=== PATIENT | female | born 1950 | race African-American/Black ===

== ENCOUNTER 2025-01-30 14:57 | Inpatient (IN) | payer MEDICARE ==
[~2025-01-30] VITALS: Ht 170.2 cm; Wt 46.3 kg
[~2025-01-30 14:57] MED LIST: AMLO5TAB88 GT; CLON0.1T PO; DOCU-422 PO; LEVE1000 GT; MELA3TAB40 PO; METO25TA6 GT; PANT40TA51 GT; TOPUD GT
[2025-01-30 15:00] VITALS: BP 118/39; PULSE 68; RESP 16; TEMP 36.6; O2SAT 98
[2025-01-30] MEDS ORDERED: HYDRALAZINE 20MG/ML VIAL IV PRN (16:45)
[2025-01-30] MEDS ORDERED: CLONIDINE 0.1MG TABLET PO PRN (16:45)
[2025-01-30] MEDS ORDERED: IPRATROPIUM/ALBUTEROL 0.5-3(2.5)MG/3ML NEB HHN PRN (16:45)
[2025-01-30] MEDS ORDERED: DOCUSATE SODIUM 100MG CAPSULE PO PRN (16:45)
[2025-01-30] MEDS ORDERED: HYDRALAZINE 10 MG in SODIUM CHLORIDE 0.9% 49.5 ML IV PRN (17:30)
[2025-01-30] MEDS: METOCLOPRAMIDE HCL 10MG/2ML VIAL IV SCH (18:00)
[2025-01-30 20:00] VITALS: BP 141/87; PULSE 80; RESP 19; TEMP 36.5; TEMP 36.5292; O2SAT 99
[2025-01-30] MEDS: CEFTRIAXONE 2GM/50ML 50 ML IV SCH (20:37)
[2025-01-30] MEDS: DEXT 5%/0.9% NACL KCL 20MEQ/L 1,000 ML IV SCH (20:44)
[2025-01-30] MEDS: AMLODIPINE 5MG TABLET GT SCH (21:51)
[2025-01-30] MEDS: METOPROLOL TARTRATE 25MG TABLET GT SCH (21:52)
[2025-01-30] MEDS: LEVETIRACETAM 1000MG PREMIX 100 ML IV SCH (22:00)
[2025-01-31 06:49] LABS: BASOPHILS % 0.5 % (0.0-2.0); EOSINOPHILS % 0.8 % (0.0-5.0); HEMATOCRIT. 27.9 % (36.0-48.0); HEMOGLOBIN. 9.2 g/dL (12.0-16.0); LYMPHOCYTES % 14.7 % (20.0-50.0); MEAN PLATELET VOLUME 8.3 fl (7.4-10.4); MONOCYTES % 9.1 % (2.0-8.0); NEUTROPHILS % 74.9 % (40.0-76.0); PLATELET 425 x1000/uL (130-400); RED BLOOD CELL COUNT 3.58 mill/uL (4.2-5.4); RED CELL DISTRIBUTION WIDTH 16.2 % (11.6-14.6)
[2025-01-31 07:26] LABS: PROTEIN TOTAL 5.0 g/dL (6.0-8.3)
[2025-01-31 07:27] LABS: CREATININE 0.5 mg/dL (0.6-1.0); UREA NITROGEN BLOOD 8 mg/dL (9-23)
[2025-01-31 07:28] LABS: ASPARTATE AMINOTRANSFERASE 19 IU/L (<34)
[2025-01-31 07:29] LABS: BILIRUBIN TOTAL < 0.2 mg/dL (0.1-1.0)
[2025-01-31 07:32] LABS: VITAMIN B12 SERUM 686 pg/mL (211-911)
[2025-01-31 07:33] LABS: FOLIC ACID (FOLATE) SERUM 7.34 ng/mL (>5.38)
[2025-01-31 08:00] VITALS: BP 157/73; PULSE 92; RESP 17; TEMP 37.1; O2SAT 98
[2025-01-31] MEDS: MAGNESIUM OXIDE 400MG TABLET GT SCH (09:50)
[2025-01-31] MEDS: PANTOPRAZOLE SODIUM 40 MG/VIAL IV SCH (09:51)
[2025-01-31 20:00] VITALS: BP 122/55; PULSE 112; RESP 18; TEMP 37.3; O2SAT 96
[2025-01-31] MEDS: METOPROLOL TARTRATE 25MG TABLET GT SCH (20:53)
[2025-02-01 08:00] VITALS: BP 127/51; PULSE 109; RESP 17; TEMP 36.8; O2SAT 96
[2025-02-01] MEDS: ACETAMINOPHEN 325MG TABLET GT PRN (13:51)
[2025-02-01] MEDS: FERROUS SULFATE 325MG TABLET PO SCH (17:24)
[2025-02-01 20:00] VITALS: BP 143/59; PULSE 79; RESP 18; TEMP 37.2; O2SAT 98
[2025-02-02 08:00] VITALS: BP 150/60; PULSE 68; RESP 18; TEMP 35.9; O2SAT 100
[2025-02-02] MEDS: ASCORBIC ACID 500 MG TABLET PO SCH (10:02)
[2025-02-02 20:32] LABS: BASOPHILS % 0.4 % (0.0-2.0); EOSINOPHILS % 1.0 % (0.0-5.0); HEMATOCRIT. 28.4 % (36.0-48.0); HEMOGLOBIN. 9.3 g/dL (12.0-16.0); LYMPHOCYTES % 14.6 % (20.0-50.0); MEAN PLATELET VOLUME 8.3 fl (7.4-10.4); MONOCYTES % 9.5 % (2.0-8.0); NEUTROPHILS % 74.5 % (40.0-76.0); PLATELET 378 x1000/uL (130-400); RED BLOOD CELL COUNT 3.56 mill/uL (4.2-5.4); RED CELL DISTRIBUTION WIDTH 16.3 % (11.6-14.6)
[2025-02-02 20:49] LABS: CREATININE 0.6 mg/dL (0.6-1.0); UREA NITROGEN BLOOD 11 mg/dL (9-23)
[2025-02-02 20:51] LABS: PHOSPHORUS 2.7 mg/dL (2.5-4.9)
[2025-02-02 21:00] VITALS: BP 142/76; PULSE 74; RESP 18; TEMP 36.2; O2SAT 97
[2025-02-03 06:51] LABS: BASOPHILS % 0.4 % (0.0-2.0); EOSINOPHILS % 1.3 % (0.0-5.0); HEMATOCRIT. 32.7 % (36.0-48.0); HEMOGLOBIN. 10.7 g/dL (12.0-16.0); LYMPHOCYTES % 17.4 % (20.0-50.0); MEAN PLATELET VOLUME 8.8 fl (7.4-10.4); MONOCYTES % 11.1 % (2.0-8.0); NEUTROPHILS % 69.8 % (40.0-76.0); PLATELET 378 x1000/uL (130-400); RED BLOOD CELL COUNT 4.14 mill/uL (4.2-5.4); RED CELL DISTRIBUTION WIDTH 16.3 % (11.6-14.6)
[2025-02-03 07:04] LABS: CREATININE 0.5 mg/dL (0.6-1.0); UREA NITROGEN BLOOD 9 mg/dL (9-23)
[2025-02-03 08:00] VITALS: BP 109/59; PULSE 69; RESP 17; TEMP 36.5; O2SAT 98
[2025-02-03 20:00] VITALS: BP 134/59; PULSE 90; RESP 18; TEMP 36.6; O2SAT 98
[2025-02-04 08:00] VITALS: BP 152/61; PULSE 71; RESP 18; TEMP 36; O2SAT 99
[2025-02-04 20:00] VITALS: BP 129/60; PULSE 91; RESP 18; TEMP 36.7; O2SAT 96
[2025-02-05 07:37] LABS: CREATININE 0.5 mg/dL (0.6-1.0); UREA NITROGEN BLOOD 11 mg/dL (9-23)
[2025-02-05 07:39] LABS: HEMATOCRIT. 29.4 % (36.0-48.0); HEMOGLOBIN. 9.7 g/dL (12.0-16.0); MEAN PLATELET VOLUME 8.3 fl (7.4-10.4); PLATELET 407 x1000/uL (130-400); RED BLOOD CELL COUNT 3.76 mill/uL (4.2-5.4); RED CELL DISTRIBUTION WIDTH 16.3 % (11.6-14.6)
[2025-02-05 08:00] VITALS: BP 137/70; PULSE 95; RESP 18; TEMP 36.4; O2SAT 97
[2025-02-05] MEDS ORDERED: LIDOCAINE HCL/EPINEPHRINE 1%-EPI 1:100,000 20ML VIAL INFIL NR (08:00)
[2025-02-05] MEDS: MULTIVITAMINS,THER W-MINERALS TABLET PO SCH (09:57)
[2025-02-05 15:35] LABS: EOSINOPHILS % MANUAL 1.0 % (0.0-5.0); LYMPHOCYTES % MANUAL 23.0 % (20.0-60.0); MONOCYTES % MANUAL 14.0 % (2.0-8.0); NEUTROPHILS % MANUAL 62.0 % (45.0-75.0); PLATELET ESTIMATE NORMAL
[2025-02-05 20:00] VITALS: BP 131/72; PULSE 94; RESP 18; TEMP 36.6; O2SAT 97
[2025-02-05] MEDS: SODIUM HYPOCHLORITE 0.125% 473ML SOLUTION TOP SCH (23:13)
[2025-02-06 08:00] VITALS: BP 170/76; PULSE 86; RESP 16; TEMP 36.4; O2SAT 99
[2025-02-06 12:09] LABS: CLARITY URINE CLEAR (CLEAR); COLOR URINE YELLOW (YELLOW); GLUCOSE URINE NEGATIVE (NEGATIVE); KETONES URINE NEGATIVE (NEGATIVE); LEUKOCYTE ESTERASE URINE NEGATIVE (NEGATIVE); NITRITE URINE NEGATIVE (NEGATIVE); OCCULT BLOOD URINE NEGATIVE (NEGATIVE); PH URINE 7.5 (4.5-8.0); PROTEIN URINE NEGATIVE (NEGATIVE); SPECIFIC GRAVITY URINE 1.009 (1.005-1.030); UROBILINOGEN URINE 0.2 E.U./dL (0.2-1.0)
[2025-02-06 20:00] VITALS: BP 117/51; PULSE 97; RESP 19; TEMP 37.4; O2SAT 99
[2025-02-07 08:00] VITALS: BP 151/76; PULSE 83; RESP 19; TEMP 36.4; O2SAT 96
[2025-02-07] MEDS: LACTULOSE 20G/30ML UDC PO NR (10:00)
[2025-02-07 20:00] VITALS: BP 132/57; PULSE 84; RESP 18; TEMP 36.4; O2SAT 95
[2025-02-08 08:00] VITALS: BP 140/60; PULSE 91; RESP 20; TEMP 36.7; O2SAT 100
[2025-02-08 08:51] LABS: BASOPHILS % 0.6 % (0.0-2.0); EOSINOPHILS % 2.3 % (0.0-5.0); HEMATOCRIT. 25.1 % (36.0-48.0); HEMOGLOBIN. 8.4 g/dL (12.0-16.0); LYMPHOCYTES % 29.5 % (20.0-50.0); MEAN PLATELET VOLUME 8.4 fl (7.4-10.4); MONOCYTES % 11.6 % (2.0-8.0); NEUTROPHILS % 56.0 % (40.0-76.0); PLATELET 407 x1000/uL (130-400); RED BLOOD CELL COUNT 3.23 mill/uL (4.2-5.4); RED CELL DISTRIBUTION WIDTH 16.1 % (11.6-14.6)
[2025-02-08 09:02] LABS: CREATININE 0.5 mg/dL (0.6-1.0)
[2025-02-08 09:03] LABS: UREA NITROGEN BLOOD 17 mg/dL (9-23)
[2025-02-08 09:05] LABS: PHOSPHORUS 3.5 mg/dL (2.5-4.9)
[2025-02-08] MEDS: DICLOFENAC SODIUM 1% GEL 50GM TOP SCH (17:00)
[2025-02-08] MEDS: AMPICILLIN SOD/SULBACTAM NA 3 G in SODIUM CHLORIDE 0.9% 100 ML IV SCH (19:01)
[2025-02-08 20:00] VITALS: BP 123/48; PULSE 95; RESP 18; TEMP 36.8; O2SAT 97
[2025-02-09 08:00] VITALS: BP 133/56; PULSE 79; RESP 17; TEMP 36.5; O2SAT 99
[2025-02-09] MEDS: LIDOCAINE 5% PATCH TOP SCH (08:51)
[2025-02-09 20:00] VITALS: BP 120/59; PULSE 89; RESP 14; TEMP 36.8; O2SAT 100
[2025-02-09] MEDS: MELATONIN 3MG TABLET PO PRN (22:17)
[2025-02-10 08:00] VITALS: BP 126/50; PULSE 67; RESP 18; TEMP 36.6; O2SAT 100
[2025-02-10] MEDS: ACETAMINOPHEN 650MG/20.3ML UDC GT SCH (17:32)
[2025-02-10 20:00] VITALS: BP 120/61; PULSE 84; RESP 18; TEMP 37.4; O2SAT 96
[2025-02-11 08:00] VITALS: BP 127/53; PULSE 73; RESP 18; TEMP 36; O2SAT 98
[2025-02-11 08:32] LABS: CREATININE 0.6 mg/dL (0.6-1.0); UREA NITROGEN BLOOD 14 mg/dL (9-23)
[2025-02-11 08:48] LABS: BASOPHILS % 2.0 % (0.0-2.0); EOSINOPHILS % 3.8 % (0.0-5.0); HEMATOCRIT. 30.9 % (36.0-48.0); HEMOGLOBIN. 10.1 g/dL (12.0-16.0); LYMPHOCYTES % 26.3 % (20.0-50.0); MEAN PLATELET VOLUME 8.0 fl (7.4-10.4); MONOCYTES % 9.9 % (2.0-8.0); NEUTROPHILS % 58.0 % (40.0-76.0); PLATELET 577 x1000/uL (130-400); RED BLOOD CELL COUNT 3.95 mill/uL (4.2-5.4); RED CELL DISTRIBUTION WIDTH 16.4 % (11.6-14.6)
[2025-02-11 20:00] VITALS: BP 134/61; PULSE 64; RESP 19; TEMP 36.5; O2SAT 100
[2025-02-12] VITALS: BP 133/61; PULSE 68; RESP 18; TEMP 36.3; O2SAT 100
[2025-02-12 08:00] VITALS: BP 125/60; PULSE 93; RESP 18; TEMP 37; O2SAT 97
[2025-02-12] MEDS: BISACODYL 10MG SUPP PR NR (15:45)
[2025-02-12 20:00] VITALS: BP 133/55; PULSE 89; RESP 18; TEMP 36.9; O2SAT 93
[2025-02-12] MEDS: LEVETIRACETAM 500MG/5ML CUP PO SCH (21:17)
[2025-02-13] MEDS ORDERED: METOCLOPRAMIDE HCL 5MG TABLET PO SCH
[2025-02-13] MEDS: METOCLOPRAMIDE HCL 10MG TABLET PO SCH
[2025-02-13] MEDS: PANTOPRAZOLE 40MG DR TABLET PO SCH (05:55)
[2025-02-13] MEDS ORDERED: PANTOPRAZOLE 40MG DR TABLET PO SCH (07:00)
[2025-02-13 08:00] VITALS: BP 130/74; PULSE 135; RESP 18; TEMP 36.3; O2SAT 98
[2025-02-13] MEDS: ACETAMINOPHEN 500MG TABLET PO SCH (10:41)
[2025-02-13] MEDS: MAGNESIUM OXIDE 400MG TABLET PO SCH (10:43)
[2025-02-13] MEDS: AMLODIPINE 5MG TABLET PO SCH (10:43)
[2025-02-13] MEDS: LEVOFLOXACIN 500MG TABLET PO SCH (13:47)
[2025-02-13 20:00] VITALS: BP 117/52; PULSE 88; RESP 19; TEMP 37.2; O2SAT 97
[2025-02-13] MEDS: ACETAMINOPHEN 325MG TABLET PO PRN (20:31)
[2025-02-14 08:00] VITALS: BP 130/58; PULSE 79; RESP 18; TEMP 36.1; O2SAT 100
[2025-02-14 20:00] VITALS: BP 109/54; PULSE 100; RESP 19; TEMP 36.6; O2SAT 93
[2025-02-15 07:32] LABS: BASOPHILS % 0.4 % (0.0-2.0); EOSINOPHILS % 2.8 % (0.0-5.0); HEMATOCRIT. 29.7 % (36.0-48.0); HEMOGLOBIN. 9.8 g/dL (12.0-16.0); LYMPHOCYTES % 29.5 % (20.0-50.0); MEAN PLATELET VOLUME 7.7 fl (7.4-10.4); MONOCYTES % 12.3 % (2.0-8.0); NEUTROPHILS % 55.0 % (40.0-76.0); PLATELET 599 x1000/uL (130-400); RED BLOOD CELL COUNT 3.85 mill/uL (4.2-5.4); RED CELL DISTRIBUTION WIDTH 16.6 % (11.6-14.6)
[2025-02-15 07:56] LABS: CREATININE 0.7 mg/dL (0.6-1.0); UREA NITROGEN BLOOD 20 mg/dL (9-23)
[2025-02-15 08:00] VITALS: BP 119/55; PULSE 101; RESP 17; TEMP 36.5; O2SAT 97
[2025-02-15 20:00] VITALS: BP 103/43; PULSE 88; RESP 20; TEMP 37; O2SAT 95
[2025-02-16 08:00] VITALS: BP 118/51; PULSE 110; RESP 18; TEMP 37.5; O2SAT 100
[2025-02-16 20:00] VITALS: BP 124/60; PULSE 91; RESP 19; TEMP 36.6; O2SAT 100
[2025-02-17] MEDS: OXYBUTYNIN CHLORIDE 5MG TABLET PO SCH (06:09)
[2025-02-17 08:00] VITALS: BP 129/75; PULSE 93; RESP 18; TEMP 36.9; O2SAT 99
[2025-02-17 20:00] VITALS: BP 102/51; PULSE 92; RESP 18; TEMP 36.4; O2SAT 97
[2025-02-18] MEDS: TRAMADOL 50MG TABLET PO PRN (02:41)
[2025-02-18 08:00] VITALS: BP 119/60; PULSE 70; RESP 16; TEMP 36.2; O2SAT 100
[2025-02-18 08:22] LABS: CREATININE 0.7 mg/dL (0.6-1.0); HEMATOCRIT. 29.3 % (36.0-48.0); HEMOGLOBIN. 9.6 g/dL (12.0-16.0); MEAN PLATELET VOLUME 7.7 fl (7.4-10.4); PLATELET 515 x1000/uL (130-400); RED BLOOD CELL COUNT 3.72 mill/uL (4.2-5.4); RED CELL DISTRIBUTION WIDTH 16.7 % (11.6-14.6); UREA NITROGEN BLOOD 19 mg/dL (9-23)
[2025-02-18 08:24] LABS: ASPARTATE AMINOTRANSFERASE 21 IU/L (<34); BILIRUBIN TOTAL 0.3 mg/dL (0.1-1.0); PROTEIN TOTAL 6.2 g/dL (6.0-8.3)
[2025-02-18 20:00] VITALS: BP 119/63; PULSE 87; RESP 18; TEMP 36.7; O2SAT 95
[2025-02-18 23:31] LABS: LYMPHOCYTES % MANUAL 25.0 % (20.0-60.0); METAMYELOCYTES % 1.0 % (0-0); MONOCYTES % MANUAL 16.0 % (2.0-8.0); MYELOCYTES % 3.0 % (0-0); NEUTROPHILS % MANUAL 55.0 % (45.0-75.0)
[2025-02-18 23:34] LABS: PLATELET ESTIMATE NORMAL
[2025-02-19 08:00] VITALS: BP 116/52; PULSE 63; RESP 16; TEMP 36.6; O2SAT 98
[2025-02-19 10:37] LABS: BASOPHILS % 0.5 % (0.0-2.0); EOSINOPHILS % 1.9 % (0.0-5.0); HEMATOCRIT. 30.2 % (36.0-48.0); HEMOGLOBIN. 10.0 g/dL (12.0-16.0); LYMPHOCYTES % 33.3 % (20.0-50.0); MEAN PLATELET VOLUME 7.9 fl (7.4-10.4); MONOCYTES % 11.6 % (2.0-8.0); NEUTROPHILS % 52.7 % (40.0-76.0); PLATELET 548 x1000/uL (130-400); RED BLOOD CELL COUNT 3.81 mill/uL (4.2-5.4); RED CELL DISTRIBUTION WIDTH 17.1 % (11.6-14.6)
[2025-02-19 10:48] LABS: CREATININE 0.7 mg/dL (0.6-1.0); UREA NITROGEN BLOOD 17 mg/dL (9-23)
[2025-02-19 20:00] VITALS: BP 128/54; PULSE 88; RESP 18; TEMP 36.6; O2SAT 97
[2025-02-20 08:00] VITALS: BP 140/59; PULSE 83; RESP 18; TEMP 36.1; O2SAT 97
[2025-02-20 20:00] VITALS: BP 122/55; PULSE 80; RESP 18; TEMP 36.2; O2SAT 95
[2025-02-21 08:00] VITALS: BP 117/54; PULSE 85; RESP 18; TEMP 36.5; O2SAT 99
[2025-02-21] MEDS ORDERED: PANT40TA51 PO (09:00)
[2025-02-21] MEDS ORDERED: METO25TA6 GT (09:00)
[2025-02-21] MEDS ORDERED: FERR-63 PO (09:00)
[2025-02-21] MEDS ORDERED: KEPPSOL PO (09:00)
[2025-02-21] MEDS ORDERED: AMLO5TAB88 PO (09:00)
[2025-02-21] MEDS ORDERED: OXYB5TAB21 PO (09:00)
[2025-02-21 09:33] VITALS: BP 117/54; PULSE 85; RESP 18; TEMP 97.7
== END 2025-02-21 10:25 | DRG 40 ==
PROVIDERS: ADMIT Physical Medicine & Rehabilitation Spinal Cord Injury Medicine; ATTEND Student in an Organized Health Care Education/Training Program
PROC: 0JB70ZZ Excision of Back Subcutaneous Tissue and Fascia, Open Approach (ICD-10-PCS; principal; 2025-02-05)
PROC: 0JB70ZZ Excision of Back Subcutaneous Tissue and Fascia, Open Approach (ICD-10-PCS; 2025-02-12)
PROC: 0JB00ZZ Excision of Scalp Subcutaneous Tissue and Fascia, Open Approach (ICD-10-PCS; 2025-02-18)
PROC: 0JB70ZZ Excision of Back Subcutaneous Tissue and Fascia, Open Approach (ICD-10-PCS; 2025-02-19)
DX: G81.94 Hemiplegia, unspecified affecting left nondominant side (principal); G93.41 Metabolic encephalopathy; L89.023 Pressure ulcer of left elbow, stage 3; L89.814 Pressure ulcer of head, stage 4; M62.82 Rhabdomyolysis; L89.126 Pressure-induced deep tissue damage of left upper back; N17.9 Acute kidney failure, unspecified; R47.01 Aphasia; I48.91 Unspecified atrial fibrillation; R13.10 Dysphagia, unspecified; F03.C3 Unspecified dementia, severe, with mood disturbance; F03.C4 Unspecified dementia, severe, with anxiety; R53.2 Functional quadriplegia; D64.9 Anemia, unspecified; I10 Essential (primary) hypertension; I35.8 Other nonrheumatic aortic valve disorders; F32.A Depression, unspecified; G89.0 Central pain syndrome; D72.829 Elevated white blood cell count, unspecified; H40.9 Unspecified glaucoma; R33.9 Retention of urine, unspecified; M54.50 Low back pain, unspecified; N39.490 Overflow incontinence; H54.8 Legal blindness, as defined in USA; R00.0 Tachycardia, unspecified; R07.9 Chest pain, unspecified; R19.7 Diarrhea, unspecified; R50.9 Fever, unspecified; R53.1 Weakness; Z93.1 Gastrostomy status; Z79.899 Other long term (current) drug therapy; W18.39XD Other fall on same level, subsequent encounter; Z91.81 History of falling
CPT/HCPCS: 36415; 71045; 74018; 80048; 80053; 81003; 82140; 82306; 82607; 82728; 82746; 83036; 83540; 83550; 83735; 84100; 84134; 84145; 84443; 85025; 87070; 87077; 87186; 92523; 92610; 97110; 97112; 97150; 97163; 97166; 97530; 97535; A4565; A4606; J0295; J0696; J1953; J2004; J2470; J2765; J7050; J8597; A5200